=== PATIENT | female | born 1970 | race Caucasian/White ===

== ENCOUNTER 2022-05-25 00:01 | Emergency (ER) | payer MEDICAID ==
[~2022-05-25] VITALS: Ht 165.1 cm; Wt 75.7 kg
[2022-05-25 00:10] VITALS: BP_SYST 165
--- NOTE | 2022-05-25 01:09 | NUR ---
BIB friend from [place] s/p fell off the scooter two weeks ago.Pts sts shes been seen in ER [facility] 2x and [facility] w/ same prob.Pt denies SOB,CP,N/V/Abd pain.Pt states shes been taking ibuprofen w/ no improvement.RR even/unlbaored.VSS.Will con to monitor.
--- NOTE | 2022-05-25 01:10 | NUR ---
Patient triaged and placed in waiting room. VSS and patient appears in no acute distress at this time. Awaiting available bed, and MD notified of need for MSE.
--- NOTE | 2022-05-25 02:20 | NUR ---
Patient to ER bed 7 to gown for evaluation. Side rails up. Report given to Yolette JOHN(reg).
--- NOTE | 2022-05-25 02:29 | NUR ---
DR. Anthony ADAM AT BEDSIDE AND EXAMINING PT
[2022-05-25] MEDS ORDERED: KETOROLAC TROMETHAMINE 30 MG VIAL IM ONE (02:45)
--- NOTE | 2022-05-25 02:56 | NUR ---
EDUCATED PATIENT ON MEDICATION, TORADOL. PATIENT AGREED TO MEDICATION AND THEN STARTED TO SCREAM WHEN ABOUT TO ADMINISTER STATING " I DON'T WANT IT!" MD NOTIFIED AT BEDSIDE.
[2022-05-25 04:09] VITALS: BP_SYST 130
--- NOTE | 2022-05-25 04:15 | NUR ---
DC PT HOME AAOX4, NO SOB NOTED AND NAD. DC INSTRUCTION WERE GIVEN TO PT ALSO INSTRUCTED TO F/U WITH HER PCP, SHE VERBALIZED UNDERSTANDING. RESOURCES GIVEN TO PT AND INFORMED HER THAT SHE CAN GO TO [facility] OR [facility] FOR FOLLOW UP.
== END 2022-05-25 04:14 | disposition home or self-care (01) ==
LOC: SED 00:01
DX: S40.012A Contusion of left shoulder, initial encounter (principal); M75.112 Incomplete rotator cuff tear or rupture of left shoulder, not specified as traumatic; F17.200 Nicotine dependence, unspecified, uncomplicated; F15.10 Other stimulant abuse, uncomplicated; Z79.899 Other long term (current) drug therapy; V00.141A Fall from scooter (nonmotorized), initial encounter; Y93.89 Activity, other specified; Y92.89 Other specified places as the place of occurrence of the external cause; Y99.8 Other external cause status
CPT/HCPCS: 99284; 71100; 73030; J1885